=== PATIENT | female | born 1940 | race Asian ===

== ENCOUNTER 2016-12-23 14:24 | Emergency (ER) | payer MEDICARE, MEDICAID ==
[~2016-12-23] VITALS: Ht 165.1 cm; Wt 59.0 kg
[~2016-12-23 14:24] MED LIST: ATORVASTATIN CA20 MG ORAL; CIPROFLOXACIN500 M2 ORAL; LOSARTAN POTASS25 MG ORAL; METFORMIN HCL500 M1 ORAL
--- NOTE | 2016-12-23 15:22 | Emergency Room Report ---
History of Present Illness General Chief Complaint: Female Urogenital Problems Source: Patient Present Illness HPI Patient is a 76-year-old female who presents after having increased dysuria and urgency with urination. Patient states that she's had recent urinary tract infection approximately 4 months ago. The patient had not been having fever. She denied any vomiting she denied any flank pain. She had not been having any abdominal pain. The patient is prediabetic. Allergies: Coded Allergies: MELOXICAM (Verified Allergy, Unknown, 10/01/16) Uncoded Allergies: PENICILLIN (Allergy, Unknown, 10/01/16) Patient History Past Medical History: see triage record Now: No Reviewed Nursing Documentation: PMH: Agreed, PSxH: Agreed Nursing Documentation-PMH Hx Hypertension: Yes Hx Diabetes: Yes Review of Systems All Other Systems: negative except mentioned in HPI Physical Exam Vital Signs Date Time Temp Pulse Resp B/P Pulse Ox O2 Delivery O2 Flow Rate FiO2 12/23/16 15:08 97.9 62 16 145/68 98 Room Air General Appearance: well appearing, no apparent distress, alert, GCS 15 Head: normocephalic, atraumatic ENT: hearing grossly normal, normal voice Neck: full range of motion, supple Respiratory: no respiratory distress, speaking full sentences Cardiovascular #1: normal inspection Gastrointestinal: normal inspection, non tender, soft Musculoskeletal: normal inspection, back normal, no calf tenderness Neurologic: normal inspection, oriented x3, responsive, store director III-XII nml as tested, normal gait Psychiatric: mood/affect normal Skin: normal inspection, no rash Medical Decision Making Diagnostic Impression: Primary Impression: Urinary tract infection ER Course Patient presented for abdominal pain. Differential diagnoses included ischemic bowel, appendicitis, perforated viscus, abdominal aortic aneurysm, inferior myocardial infarction, viral gastroenteritis Patient's benign exam and does not appear to require any further imaging or laboratory testing at this time apart from urinary testing. A urinalysis showed evidence of a mild urinary tract infection. Patient was given Cipro in emergency department. Patient was given prescription for oral antibiotics. She is advised followup with her primary care physician for further evaluation and recheck of urine. She is advised to return if she began persistent vomiting increased abdominal pain or other concerns. Laboratory Tests Test 12/23/16 15:03 Urine Color [place] Urine Appearance Clear Urine pH 6 (4.5-8.0) Urine Specific [place] 1.015 (1.005-1.035) Urine Protein Negative (NEGATIVE) Urine Glucose (UA) Negative (NEGATIVE) Urine Ketones Negative (NEGATIVE) Urine Occult Blood Negative (NEGATIVE) Urine Nitrite Negative (NEGATIVE) Urine Bilirubin 2+ (NEGATIVE) H Urine Ictotest N Urine Urobilinogen 4 MG/DL (0.0-1.0) H Urine Leukocyte Esterase 2+ (NEGATIVE) H Urine RBC 0 /HPF (0 - 2) Urine WBC 5-10 /HPF (0 - 2) H Urine Squamous Epithelial Cells Few /LPF (NONE/OCC) Urine Bacteria Many /HPF (NONE) H Last Vital Signs Date Time Temp Pulse Resp B/P Pulse Ox O2 Delivery O2 Flow Rate FiO2 12/23/16 15:08 97.9 62 16 145/68 98 Room Air Status: improved Disposition: HOME, SELF-CARE Condition: Stable Scripts Ciprofloxacin Hcl* (CIPROFLOXACIN HCL*) 500 Mg Tablet 500 MG ORAL Q12H, #9 TAB 0 Refills Prov: Joe Moulton 12/23/16 Joe Moulton Dec 23, 2016 15:22
[2016-12-23 15:24] LABS: APPEARANCE,URINE CLEAR; KETONES,URINE NEGATIVE (NEGATIVE); PH,URINE 6 (4.5-8.0); PROTEIN,URINE NEGATIVE (NEGATIVE); UROBILINOGEN,URINE 4 MG/DL (0.0-1.0)
[2016-12-23 15:26] LABS: NITRITE,URINE NEGATIVE (NEGATIVE)
[2016-12-23 15:27] VITALS: BP 124/72
[2016-12-23 15:27] LABS: LEUKOCYTE ESTERASE ,URINE 2+ (NEGATIVE)
[2016-12-23 15:33] LABS: BACTERIA,URINE MANY /HPF; RBC,URINE 0 /HPF (0 - 2); SQUAMOUS EPITHELIAL CELL,UR FEW /LPF (NONE/OCC)
[2016-12-23 15:35] LABS: ICTOTEST N
[2016-12-23] MEDS ORDERED: CIPROFLOXACIN500 M2 ORAL (15:40)
[2016-12-23] MEDS ORDERED: Ciprofloxacin 500mg tab ORAL ONE (15:45)
[2016-12-23 15:49] VITALS: BP 124/72
== END 2016-12-23 15:50 | disposition home or self-care (01) ==
LOC: EMR 15:26
DX: N39.0 Urinary tract infection, site not specified (principal); E11.9 Type 2 diabetes mellitus without complications; I10 Essential (primary) hypertension; Z88.0 Allergy status to penicillin; Z88.8 Allergy status to other drugs, medicaments and biological substances
CPT/HCPCS: 81003; 87086; 87181; 99283

== ENCOUNTER 2018-02-19 15:45 | Outpatient (RCR) | payer MEDICARE, MEDICAID | END 2018-03-07 | disposition home or self-care (01) | LOC: PTY 15:45 | DX: M17.12 Unilateral primary osteoarthritis, left knee (principal); M17.11 Unilateral primary osteoarthritis, right knee; M47.816 Spondylosis without myelopathy or radiculopathy, lumbar region | CPT/HCPCS: 97110; 97161; G8978; G8979 ==

== ENCOUNTER 2018-03-08 15:00 | Outpatient (RCR) | payer MEDICARE, MEDICAID | END 2018-04-06 | disposition home or self-care (01) | LOC: PTY 15:00 | DX: M17.12 Unilateral primary osteoarthritis, left knee (principal); M17.11 Unilateral primary osteoarthritis, right knee; M47.816 Spondylosis without myelopathy or radiculopathy, lumbar region | CPT/HCPCS: 97110; G8979; G8980 ==